=== PATIENT | male | born 2000 | race Caucasian/White ===

== ENCOUNTER 2024-12-06 00:34 | Emergency (ER) | payer MEDICAID ==
[~2024-12-06] VITALS: Ht 172.7 cm; Wt 81.8 kg
[2024-12-06 00:35] VITALS: BP 133/90; PULSE 136; TEMP 98.1; O2SAT 95
--- NOTE | 2024-12-06 00:45 | Physician Documentation ---
History of Present Illness ~ Chief Complaint: ETOH Stated Complaint: ETOH Time Seen by MD: 00:41 HPI This is a 24-year-old gentleman who was brought in by ambulance after he was found down on a sidewalk, face down by a bystander. The patient does not recall the sequence of events. He states that he was at a libertarian, where he had two tall boys". He was walking home and next thing he knows the paramedics were there. At the time of my examination he denies any pain, denies any somatic complaints. Denies any chest pain, difficulty breathing, headache. He does report that his heart rate is normally in 120s to 140s, he sees Cardiology for it. Medication Reconciliation Allergies: Coded Allergies: No Known Allergies (Unverified , 12/06/24) Review of Systems ROS 10 point review of systems was performed and unless noted above in HPI is negative for acute process/complaint. Physical Exam Vital Signs: Temperature: 98.1, Heart Rate: 136, Respiratory Rate: 16, BP: 133/90, Pulse Oximetry: 95, Weight: 81.820 Oxygen Flow Rate: 0 Physical Exam GENERAL: Awake, alert, oriented, GCS 15, no apparent distress, non-toxic appearing, answers questions, follows commands appropriately. Examined immediately upon arrival in bed 2. HEENT: Atraumatic, normocephalic, pupils equal, extraocular muscles intact, sclerae anicteric, mucus membranes moist, oropharynx is clear, no stridor. NECK: supple, full active range of motion, trachea midline, no thyromegaly, no lymphadenopathy, no JVD. CARDIOVASCULAR: Tachycardic and regular rate/rhythm, no murmurs/gallops/rubs, Pulses are 2+ in all extremities and symmetric. Capillary refill less than 2 seconds. PULMONARY: Nonlabored, good air movement ,no respiratory distress, speaking in full sentences, clear to auscultation bilaterally, no wheezing, no ronchi, no rales, no accessory muscle use. GASTROINTESTINAL: Soft, non-tender, non-distended, normal active bowel sounds, no organomegaly, no pulsatile masses, no CVA tenderness. NEUROLOGIC: Lucid with normal mental status. Normal facial symmetry. Moves all extremities symmetrically and with purpose. No truncal ataxia. Speech is fluid without evidence of dysarthria or aphasia, no focal deficits appreciated. MUSCULOSKELETAL: There is full range of motion of all extremities. There is no joint pain or joint swelling or joint erythema. There is no muscle pain or tenderness or swelling. EXTREMITIES: warm, well-perfused, no cyanosis, no clubbing, no edema, no acute deformities. Skin: warm, dry, no rashes or lesions, no jaundice, no petechiae orpurpura. No ecchymosis. PSYCHIATRIC: Normal affect, normal insight, normal concentration. Focused exam: [] Progress Results/Orders Results/Orders Orders - TOAN PINEDO DO Urinalysis, Cult If Indicated (12/06/24 00:41) Drug Screen, Urine (12/06/24:41) Hs Troponin I W Calculations (12/06/24 02:41) Completed Orders - TOAN PINEDO DO Ethanol (12/06/24:41) Electrocardiogram (12/06/24 00:41) Cbc/Diff (12/06/24:) CK (12/06/24:41) PBNP (12/06/24:41) MG (12/06/24 00:41) TSH (12/06/24 00:41) Free T4 (12/06/24:41) Normal Saline 1000ml (0.9% Sodium Chlori (12/06/24 00:45) CMP (12/06/24:41) Hs Troponin I W Calculations (12/06/24:41) Medications Received in ER Medications (Trade) Dose Ordered Sig/Martha Route PRN Reason Start Time Stop Time Status Last Admin Dose Admin (0.9% sodium chloride (NS) 1000ml IV soln) 1,000 ml ONCE ONCE IVB 12/06/24 00:45 12/06/24 00:46 DC 12/06/24 00:46 1,000 ML Vital Signs 12/06/24 12/06/24 00:35 00:58 Temp 98.1 Pulse 136 Resp 16 18 B/P (MAP) 133/90 Pulse Ox 95 O2 Flow Rate 0 Laboratory Tests Test 12/06/24 00:40 White Blood Count 11.4 H Red Blood Count 5.82 Hemoglobin 17.6 Hematocrit 51.6 Mean Corpuscular Volume 88.8 Mean Corpuscular Hemoglobin 30.3 Mean Corpuscular Hemoglobin Concent 34.1 Red Cell Distribution Width 12.6 Platelet Count 308 Mean Platelet Volume 6.9 L Neutrophils (%) (Auto) 58.9 Lymphocytes (%) (Auto) 32.0 Monocytes (%) (Auto) 7.8 Eosinophils (%) (Auto) 0.1 Basophils (%) (Auto) 1.2 H Neutrophils # (Auto) 6.7 Lymphocytes # (Auto) 3.6 Monocytes # (Auto) 0.9 Eosinophils # (Auto) 0.0 Basophils # (Auto) 0.1 CBC Comment Sodium Level 141 Potassium Level 3.4 L Chloride Level 103 Carbon Dioxide Level 25.8 Anion Gap 12 Blood Urea Nitrogen 6 L Creatinine 0.81 Estimated GFR/1.73 m2 > 90 BUN/Creatinine Ratio 7.4 L Glucose Level 104 Calcium Level 9.0 Magnesium Level 2.3 Total Bilirubin 0.6 Aspartate Amino Transf (AST/SGOT) 20 Alanine Aminotransferase (ALT/SGPT) 21 Alkaline Phosphatase 118 H Total Creatine Kinase 90 Troponin I High Sensitivity 5 Pro-B-Type Natriuretic Peptide < 30 Total Protein 8.4 H Albumin 4.3 Globulin 4.1 Albumin/Globulin Ratio 1.0 L Thyroid Stimulating Hormone (TSH) 0.76 Free Thyroxine 1.86 H Chemistry Comments Ethyl Alcohol Level 252 H Medical Decision Making Findings Facility Status: ED Holds, [facility] process The plan was discussed with the patient, who demonstrates clear understanding of the plan and is in agreement with the plan unless otherwise noted in the chart. All questions have been answered, all concerns were addressed unless otherwise documented. I was available throughout their ED stay for frequent reassessment and questions. Differential Diagnoses (considered and possible or likely): [Alcohol intox ication, alcohol withdrawal, methamphetamine/cocaine intoxication, dehydration, electrolyte derangement, less likely but I have considered ground level fall, closed head injury, concussion, subdural, subarachnoid, cervical spine fracture or subluxation.] ??Differential Diagnoses (considered and unlikely, not requiring evaluation currently): [No evidence of lateralizing sinuses suspect a stroke] MDM Data Please see HPI for the following: Independent Historians and external Records Review. Historian: Limited information from patient as he does not recall the events Independent Historians: ?[EMS, record review] Medication Management: [Reviewed medication list] Social History and determinants: [Reviewed] Please see the body of the note for the following: Any independent interpretations of ECG, imaging studies. All vitals signs/haemodynamics, ordered tests were independently reviewed and interpreted by myself. Nursing triage complaint and vitals reviewed, additional nursing notes were reviewed as available and I agree unless otherwise noted or documented in contradiction in the chart Vital Signs: Independently reviewed Labs: Independently interpreted Imaging: Independently interpreted Old Medical Records: Independently reviewed, see HPI for relevant summary and information Pulse Oximetry: [97%] interpreted as [normal on room air] by me [Gas Meter Repairer: Tachycardic Rate, Regular rhythm, no ectopy, sinus tachycardia. reviewed and interpreted by me] Additionally notably showing: [Hemodynamics reviewed the patient is tachycardic, improved with fluids. Not febrile. Not hypotensive. Laboratory studies reviewed. CBC is normal. No leukocytosis. Mild hemo concentration noted. Chemistry shows normal electrolytes. His T4 is elevated concerning for hyperthyroidism. Initial troponin is negative. Toxicology shows ethanol of 252, he is plastered.] Tests considered but not ordered include: [CT head and CT C-spine were ordered to evaluate for potential traumatic injury, however the gentleman declines a] Social Determinants of Health Impact: Patient was evaluated in [facility], [facility] [place] to healthcare due to below par ratio of patient to medical providers. [] Comorbid Conditions Impacting Present Evaluation and Care/Treatment: [Alcohol intoxication] Management Discussions with other Healthcare Providers: [None] Treatment and Disposition Medication Management (Given or considered): [Fluid resuscitation was provided for treatment of clinically and/or laboratory apparent dehydration.]. See EMR for details Consideration for Hospitalization/Escalation/Deescalation of Care: Admission for observation has been considered, [however the patient is able to tolerate p.o., their symptoms are controlled, they are able to rely on oral medications, and their chief complaint/diagnosis can be managed on outpatient basis.] ?ED Course:?[The gentleman was allowed to achieve clinical sobriety. He is able to ambulate with a steady gait. He does not want any further workup. He will take were home and he will be cared for by his sober girlfriend at home.] ?Shared decision making:?[Patient is hemodynamically stable for discharge home with follow with their primary care provider. [ ] Specific and cautious return precautions provided and discussed with full understanding. Any incidental findings were also discussed and follow up recommendations given. [] All questions answered. Patient/family were able to verbalize back return precautions. Patient/family agree to plan. Copies of imaging and laboratory studies were provided.] Code status:?FULL Please see the full Electronic Medical Record for full details of nursing documentation, medications list, other records of complete past medical history and conditions, vital signs, laboratory studies, and any radiologic study interpretations by radiologists. Portions of this note were completed using [employer] dictation software and as a result there may exist minor errors in spelling. I have reviewed elements of past family and social history and agree as included in note. Departure Disposition: HOME / SELF CARE / HOMELESS Impression: Primary Impression: Alcoholic intoxication Additional Impression: Transient alteration of awareness Condition: Improved Discharge Instructions: Alcohol Intoxication Additional Instructions: Today you were evaluated in the hospital because you were found laying on the sidewalk in [place]. It appears that you were level of alcohol was 252, which equals approximately 13 standard drinks. This is quite a significant level of intoxication. Because you were found by the bystanders face down it is not clear if your simply fell asleep drunk, or if you had sustained some kind of injury. We did want to obtain CT head and C-spine to rule out potential brain bleed, however you declined. The rest of the laboratory studies is unremarkable. You desire to leave. You are obtaining your own sober ride and you will be cared for, according to you, by your sober girlfriend at home. Please feel free to return to emergency department if you have any other concerns. We are always glad to help you. Please limit your alcohol intake or at the very least monitor it, as it clearly affect your life and with a negative way. Referrals: NO PRIMARY CARE PROVIDER (PCP) Education Educated: Patient Educated regarding: diagnosis, treatment, prognosis, need for follow up Signature Scribe Signature: No scribe Attestation: Date: Dec 06, 2024 Time: 00:45 This note accurately reflects clinical decisions, work performed by myself, DO KHRIS Goins NICHOLAS M DO Dec 06, 2024 00:45
[2024-12-06] MEDS: normal saline 1000ML IV soln IVB ONE (00:46)
--- NOTE | 2024-12-06 00:49 | ELECTROCARDIOGRAPH REPORT ---
[facility] Test Date: 2024-12-06 Test Time: 00:46:06 Pat Name: WILLEM OSMAN Department: [facility]-ER Patient ID: [facility]-[id number] Room: Gender: M Guard Chief: : 2000 Requested By: TOAN PINEDO Order Number: [id number] Reading MD: Dr. Hector Sol Measurements Intervals [place] Rate: 122 P: 54 NV: 142 QRS: 117 QRSD: 98 T: 9 QT: 308 QTc: 439 Interpretive Statements Sinus tachycardia Left posterior fascicular block Electronically Signed On 12-10-2024 19:22:[address] Hector Sol Please click the below link to view image of tracing.
[2024-12-06 00:55] LABS: MEAN PLATELET VOLUME 6.9 FL (7.4-10.4); RED CELL DISTRIBUTION WIDTH 12.6 % (11.5-14.5)
[2024-12-06 00:58] VITALS: RESP 18
[2024-12-06 01:06] LABS: CREATININE 0.81 MG/DL (0.60-1.10); TOTAL CARBON DIOXIDE 25.8 MMOL/L (24-32); eCRCL 134 ML/MIN; eGFR > 90 ML/MIN
[2024-12-06 01:15] LABS: ETHANOL 252 MG/DL (<10); PRO BRAIN NATRIURETIC PEPTIDE < 30 PG/ML (0-125)
== END 2024-12-06 02:30 | disposition home or self-care (01) ==
LOC: ER 00:35
DX: F10.129 Alcohol abuse with intoxication, unspecified (principal); R40.4 Transient alteration of awareness; R06.02 Shortness of breath; Y90.9 Presence of alcohol in blood, level not specified
CPT/HCPCS: 36415; 80053; 80320; 82550; 83735; 83880; 84439; 84443; 84484; 85025; 93005; 96360; 99284; J7030